=== PATIENT | male | born 2000 | race Caucasian/White ===

== ENCOUNTER 2019-06-13 19:15 | Emergency (ER) | payer BC ==
[2019-06-13 19:35] VITALS: BP 122/80
--- NOTE | 2019-06-13 19:51 | ED ---
Throat Pain/Nasal Congestion - HPI Summary HPI Summary: 18 yr old male with the complaint of sore throat two days ago, and now bilateral ear pain. He has pain mostly just in his ear now. No fever or chills. He has gotten prior ear infections. He feels this is ear infections. He has no other complaints. His symptoms are moderate. - History of Current Complaint Chief Complaint: UCRespiratory Time Seen by Provider: 06/13/19 19:37 - Allergies/Home Medications Allergies/Adverse Reactions: Allergies Allergy/AdvReac Type Severity Reaction Status Date / Time No Known Allergies Allergy Verified 06/13/19 19:31 PMH/Surg Hx/FS Hx/Imm Hx Infectious Disease History: No Infectious Disease History: Denies: Traveled Outside the [place] in Last 30 Days - Family History Known Family History: Positive: None - Social History Occupation: Student Alcohol Use: Weekly Substance Use Type: Reports: None Smoking Status (MU): Never Smoked Tobacco Review of Systems Constitutional: Negative Positive: Sore Throat, Ear Ache All Other Systems Reviewed And Are Negative: Yes Physical Exam Triage Information Reviewed: Yes Vital Signs On Initial Exam: Initial Vitals Temp Pulse Resp BP Pulse Ox 98.2 F 86 16 122/80 98 06/13/19 19:32 06/13/19 19:32 06/13/19 19:32 06/13/19 19:32 06/13/19 19:32 Vital Signs Reviewed: Yes Appearance: Positive: Well-Appearing, No Pain Distress Skin: Positive: Warm, Skin Color Reflects Adequate Perfusion Head/Face: Positive: Normal Head/Face Inspection Eyes: Positive: EOMI ENT: Positive: Pharyngeal erythema, TM dull - bilateral, TM red - bilateral Neck: Positive: Nontender Respiratory/Lung Sounds: Positive: Clear to Auscultation, Breath Sounds Present Cardiovascular: Positive: RRR. Negative: Murmur Abdomen Description: Negative: Distended Musculoskeletal: Positive: Strength/ROM Intact Neurological: Positive: Sensory/Motor Intact, Alert, Oriented to Person Place, Time, CN Intact II-III Psychiatric: Positive: Normal Diagnostics - Vital Signs Vital Signs Temp Pulse Resp BP Pulse Ox 06/13/19 19:32 98.2 F 86 16 122/80 98 - Laboratory Lab Statement: Any lab studies that have been ordered have been reviewed, and results considered in the medical decision making process. EENT Course/Dx - Course Course Of Treatment: bilateral otitis media. Rx amox - Diagnoses Provider Diagnoses: Otitis media Discharge ED - Sign-Out/Discharge Documenting (check all that apply): Patient Departure All imaging exams completed and their final reports reviewed: No Studies - Discharge Plan Condition: Good Disposition: HOME Prescriptions: Amoxicillin PO (*) [Amoxicillin 500 MG CAP*] 500 mg PO TID #30 cap Patient Education Materials: Ear Infection (ED) Referrals: No Primary Care Phys,NOPCP [Primary Care Provider] - [facility] [Outside] - Billing Disposition and Condition Condition: GOOD Disposition: Home
== END 2019-06-13 19:52 | disposition home or self-care (01) ==
LOC: UCCORT 19:15 → EDSEX 19:15 → UCCORT 19:52
DX: H66.93 Otitis media, unspecified, bilateral (principal); J02.9 Acute pharyngitis, unspecified
CPT/HCPCS: 99202; G0463

== ENCOUNTER 2019-10-16 13:28 | Emergency (ER) | payer BC ==
[2019-10-16] MEDS ORDERED: Azithromycin TAB* 250 MG PO ONE (16:21)
[2019-10-16] MEDS ORDERED: Lidocaine 1% MPF ** 5 ML VIAL IM ONE (16:22)
[2019-10-16] MEDS ORDERED: cefTRIAXone VIAL(*) 250 MG VIAL IM ONE (16:22)
--- NOTE | 2019-10-16 16:23 | UC ---
Complaint Male HPI - HPI Summary HPI Summary: 18yo male presenting with dysuria, "white" penile discharge, and "irritation" at external urethral orifice since yesterday while playing basketball. Denies testicular pain. Denies rash or lesions. Denies abdominal pain. Denies fever and chills. Denies flank pain. Denies any UTI in the past. Denies concern for STIs becuase last sexaul encounter was "probably 3 months ago, but states "it is a thought." - History of Current Complaint Chief Complaint: UCGU Stated Complaint: PERSONAL Hx Obtained From: Patient Pain Intensity: 6 Pain Scale Used: 0-10 Numeric - Allergies/Home Medications Allergies/Adverse Reactions: Allergies Allergy/AdvReac Type Severity Reaction Status Date / Time No Known Allergies Allergy Verified 10/16/19 14:21 Home Medications: Home Medications NK [No Home Medications Reported] 10/16/19 [History Confirmed 10/16/19] PMH/Surg Hx/FS Hx/Imm Hx Previously Healthy: Yes - Surgical History Surgical History: None - Family History Known Family History: Positive: None - Social History Alcohol Use: Weekly Substance Use Type: None Smoking Status (MU): Never Smoked Tobacco Review of Systems All Other Systems Reviewed And Are Negative: Yes Constitutional: Positive: Negative Respiratory: Positive: Negative Cardiovascular: Positive: Negative Gastrointestinal: Positive: Negative Genitourinary: Positive: Dysuria, Vaginal/Penile Discharge, Vaginal/Penile Tenderness. Negative: Hematuria, Frequency, Urgency Musculoskeletal: Positive: Negative Neurological/Mental Status: Positive: Negative Physical Exam - Summary Physical Exam Summary: Vital Signs Reviewed: Yes A+Ox3, no distress, well-appearing Eyes: Conjunctiva Clear ENT: Hearing grossly normal neck: supple Respiratory: Positive: No respiratory distress, No accessory muscle use Cardiovascular: skin color reflect adequate perfusion Musculoskeletal Exam: QUEZADA x 4 without difficulty Neurological: Positive: Alert, ambulatory without difficulty Psychological: Positive: age appropriate behavior Skin: Positive: no rash, no ecchymosis Vital Signs: Initial Vital Signs Temp 98.4 F 10/16/19 14:18 Pulse 80 10/16/19 14:18 Resp 16 10/16/19 14:18 BP 119/72 10/16/19 14:18 Pulse Ox 100 10/16/19 14:18 Lab Results 10/16/19 Range/Units 16:05 POC Urine Color Dark yellow POC Urine Clarity Slightly cloudy POC Urine pH 6.0 (5-9) POC Ur Specif [place] >= 1.030 (1.010-1.030) POC Urine Protein Trace A (Negative) POC Ur Glucose (UA) Negative (Negative) POC Urine Ketones 1+ A (Negative) POC Urine Blood Trace-intact A (Negative) POC Urine Nitrite Negative (Negative) POC Urine Bilirubin 2+ A (Negative) POC Urine Urobilinogen 1.0 (Negative) POC U Leukocyte Esteras 1+ A (Negative) Complaint Male Course/Dx - Course Course Of Treatment: Patient UA positive for 1+ leuks, trace blood. Patient declined penile/ testicular examination at this time. I discussed occurrence of UTIs in males and most common source in males his age is sexually transmitted infections. Patient consented to one time treatment here for both gonorrhea and chlamydia. I also informed the patient that he may take otc Azo for symptom relief. I informed the patient and his urine was sent for culture and testing for gonorrhea, Chlamydia, and Trichomonas. I told the patient that he will be notified with any positive results that warrant further treatment and instructed him to follow up with [facility] if he experiences any new or worsening symptoms. Patient voiced understanding and agreed with the treatment plan. - Differential Dx/Diagnosis Provider Diagnosis: UTI (urinary tract infection), Concern about STD in male without diagnosis Discharge ED - Sign-Out/Discharge Documenting (check all that apply): Patient Departure All imaging exams completed and their final reports reviewed: No Studies - Discharge Plan Condition: Stable Disposition: HOME Patient Education Materials: Sexually Transmitted Diseases (ED), Safe Sex (ED) , Urinary Tract Infection in Men (ED) Referrals: [facility] [Outside] - If Needed Additional Instructions: You received one time treatment today for possible STI source of infection. No further treatment is needed at this time. Your urine has been sent for culture and you will be notified with any changes in treatment that need to be made based on results. You may take Azo over the counter for symptom relief. Increase your fluid intake. Refrain from sexual encounters for at least one week. Follow up with the [facility] clinic if you experience persistent or worsening symptoms. - Billing Disposition and Condition Condition: STABLE Disposition: Home
[2019-10-16 16:26] VITALS: BP 126/65
[2019-10-20 12:27] LABS: Chlamydia trachomatis NAA Negative (Negative); Neisseria gonorrhoeae (GC) NAA Negative (Negative)
== END 2019-10-16 16:49 | disposition home or self-care (01) ==
LOC: UCCORT 13:28
DX: N39.0 Urinary tract infection, site not specified (principal); Z11.3 Encounter for screening for infections with a predominantly sexual mode of transmission
CPT/HCPCS: 81003; 87086; 87491; 87591; 87661; 96372; 99212; A9270-GY; G0463; J0696